=== PATIENT | male | born 2000 | race Caucasian/White ===

== ENCOUNTER 2020-01-10 10:46 | Outpatient (CLI) | payer OTHER | END 2020-01-10 23:59 | disposition home or self-care (01) | LOC: RAD 10:46 | PROVIDERS: ATTEND Surgery Surgery of the Hand | DX: S52.571A Other intraarticular fracture of lower end of right radius, initial encounter for closed fracture (principal); X58.XXXA Exposure to other specified factors, initial encounter; Y93.89 Activity, other specified; Y92.89 Other specified places as the place of occurrence of the external cause; Y99.8 Other external cause status ==